=== PATIENT | male | born 1975 | race Caucasian/White ===

== ENCOUNTER 2021-11-05 03:39 | Inpatient (IN) | payer SELFPAY ==
[2021-11-05] VITALS (24 sets, daily range): BP systolic 122–220; BP diastolic 69–130; PULSE 75–119; RESP 14–26; TEMP 36.6–37; O2SAT 94–100; BMI 33.9; BMI 36.4
--- NOTE | 2021-11-05 03:53 | CT_ITS ---
PROCEDURE INFORMATION: Exam: CTA Abdomen and Pelvis With Contrast Exam date and time: 11/05/2021 3:53 AM Age: 46 years old Clinical indication: Shortness of breath and other: Severe epigastric pain and vomiting; Additional info: Epigastric pain worst pain radiating to back TECHNIQUE: Imaging protocol: Computed tomographic angiography of the abdomen and pelvis with contrast material. 3D rendering (Not supervised by radiologist): MIP and/or 3D reconstructed images were created by the technologist. Radiation optimization: All CT scans at this facility use at least one of these dose optimization techniques: automated exposure control; mA and/or kV adjustment per patient size (includes targeted exams where dose is matched to clinical indication); or iterative reconstruction. Contrast material: ISOVUE 370; Contrast volume: 100 ml; Contrast route: INTRAVENOUS (IV); COMPARISON: No relevant prior studies available. FINDINGS: Aorta: No aortic aneurysm. No aortic dissection. Celiac trunk and mesenteric arteries: No occlusion or significant stenosis. Renal arteries: No occlusion or significant stenosis. Right iliac arteries: No occlusion or significant stenosis. Left iliac arteries: No occlusion or significant stenosis. Liver: The liver is diffusely low in density. Gallbladder and bile ducts: Unremarkable. No calcified stones. No ductal dilation. Pancreas: Unremarkable. No mass. No ductal dilation. Spleen: Unremarkable. No splenomegaly. Adrenal glands: Unremarkable. No mass. Kidneys and ureters: Unremarkable. No solid mass. No hydronephrosis. Stomach and bowel: The stomach is distended with fluid and solids. The colon is decompressed. A few diverticuli of the sigmoid colon are noted. Multiple distended fluid-filled loops of small bowel are seen throughout the abdomen extending to the mid to distal ileum. The transition zone is not identified. Appendix: No evidence of appendicitis. Intraperitoneal space: Small amount of free fluid is seen in the dependent pelvis. Lymph nodes: Unremarkable. No enlarged lymph nodes. Urinary bladder: Unremarkable. No mass. Reproductive: Unremarkable as visualized. Bones/joints: No acute fracture. No dislocation. Soft tissues: Unremarkable. IMPRESSION: 1. Mid to distal small bowel obstruction. No evidence of perforation. The transition zone is not identified but is likely in the mid to distal ileum. 2. Aortic atherosclerosis is present without dissection aneurysm or other acute process. 3. Diffuse hepatic steatosis.
--- NOTE | 2021-11-05 03:53 | ECG_ITS ---
APPROVED REPORT Exam: Resting ECG HR:94 bpm ECG Measurements Heart Rate 94 AXES CO 146 P 78 QRSd 80 QRS -42 QT 360 T 59 QTc 450 Conclusion Normal sinus rhythm Left axis deviation Abnormal ECG Electronically signed by : Jon Hunt MD 11/05/2021 21:38:01
--- NOTE | 2021-11-05 03:53 | XR_ITS ---
PROCEDURE INFORMATION: Exam: XR Chest Exam date and time: 11/05/2021 3:53 AM Age: 46 years old Clinical indication: Sternal or substernal pain; Additional info: Epigastric pain, worst pain, trouble breathing TECHNIQUE: Imaging protocol: XR of the chest. Views: 1 view. COMPARISON: CT ANGIO CHEST 11/05/2021 4:19 AM FINDINGS: Lungs: Unremarkable. No consolidation. Pleural spaces: Unremarkable. No pleural effusion. No pneumothorax. Heart/Mediastinum: Unremarkable. No cardiomegaly. Bones/joints: Unremarkable. IMPRESSION: No acute findings.
--- NOTE | 2021-11-05 03:53 | CT_ITS ---
PROCEDURE INFORMATION: Exam: CTA Chest With Contrast Exam date and time: 11/05/2021 3:53 AM Age: 46 years old Clinical indication: Pain; Chest pressure; Additional info: Epigastric pain worst pain radiating to back TECHNIQUE: Imaging protocol: Computed tomographic angiography of the chest with contrast. 3D rendering (Not supervised by radiologist): MIP and/or 3D reconstructed images were created by the technologist. Radiation optimization: All CT scans at this facility use at least one of these dose optimization techniques: automated exposure control; mA and/or kV adjustment per patient size (includes targeted exams where dose is matched to clinical indication); or iterative reconstruction. Contrast material: ISOVUE 370; Contrast volume: 100 ml; Contrast route: INTRAVENOUS (IV); COMPARISON: No relevant prior studies available. FINDINGS: Pulmonary arteries: Normal. No pulmonary emboli. Aorta: Unremarkable. No aortic aneurysm. No aortic dissection. Lungs: Unremarkable. No consolidation. No masses. Pleural spaces: Unremarkable. No pneumothorax. No pleural effusion. Heart: Unremarkable. No cardiomegaly. No pericardial effusion. Lymph nodes: Unremarkable. No enlarged lymph nodes. Bones/joints: Unremarkable. No acute fracture. Soft tissues: Unremarkable. IMPRESSION: No acute findings. No evidence of aortic dissection or other acute aortic syndrome. No evidence of pulmonary embolus.
--- NOTE | 2021-11-05 03:59 | HMH.EDGENADL ---
ED Disposition Clinical Impression: SBO (small bowel obstruction), Sepsis Disposition: Admitted As Inpatient Condition on Discharge: Fair - Critical Care Critical Care Time: No Attestation: On 11/05/21, the high probability of a clinically significant, sudden or life threatening deterioration of the following system(s) required my full and direct attention, intervention and personal management. The time I documented below is in addition to time spent performing reported procedures but includes the following listed in this critical care notation. Medical Decision Making - Tee Inquiry Pt receiving controlled substance: Yes Tee was queried for this patient: No Reason not queried -: Emergent pt cond-no time Risks and benefits of using a controlled substance: were not discussed with pt by me Vital Signs: 11/05/21 03:58 11/05/21 04:33 11/05/21 05:00 Temperature 97.8 F Temperature Source Oral Pulse Rate 87 84 Pulse Rate [Right Brachial] 119 H Respiratory Rate 26 H 20 15 Blood Pressure 174/104 H 143/106 H Blood Pressure [Right Arm] 150/100 H Blood Pressure Mean Blood Pressure Mean [Right Arm] 116 Blood Pressure Source Blood Pressure Source [Right Arm] Manual Cuff/ Auscultation Blood Pressure Position Blood Pressure Position [Right Arm] Sitting 02 Sat by Pulse Oximetry 97 98 99 Oxygen Delivery Method Room Air Room Air Room Air 11/05/21 05:43 11/05/21 05:58 11/05/21 06:00 Temperature Temperature Source Pulse Rate 89 118 H 87 Pulse Rate [Right Brachial] Respiratory Rate 20 19 23 Blood Pressure 133/93 H 122/75 154/102 H Blood Pressure [Right Arm] Blood Pressure Mean 106 118 Blood Pressure Mean [Right Arm] Blood Pressure Source Automatic Cuff Blood Pressure Source [Right Arm] Blood Pressure Position Supine Blood Pressure Position [Right Arm] 02 Sat by Pulse Oximetry 98 98 96 Oxygen Delivery Method 11/05/21 06:31 11/05/21 07:00 Temperature Temperature Source Pulse Rate 86 75 Pulse Rate [Right Brachial] Respiratory Rate 15 14 Blood Pressure 171/105 H 171/103 H Blood Pressure [Right Arm] Blood Pressure Mean 127 117 Blood Pressure Mean [Right Arm] Blood Pressure Source Blood Pressure Source [Right Arm] Blood Pressure Position Blood Pressure Position [Right Arm] 02 Sat by Pulse Oximetry 100 99 Oxygen Delivery Method - Lab Data Lab Results 11/05/21 03:51: WBC 18.2 H, RBC 5.50, Hgb 16.7, Hct 50.0, MCV 90.8, MCH 30.4, MCHC 33.5, RDW 13.4, Plt Count 336, MPV 7.2 L, Neut % (Auto) 75.5, Lymph % (Auto) 18.0, [place] % (Auto) 5.3, Eos % (Auto) 0.4, Baso % (Auto) 0.8, Neut # (Auto) 13.8 H, Lymph # (Auto) 3.3, [place] # (Auto) 1.0, Eos # (Auto) 0.1, Baso # (Auto) 0.2, Total Counted 100, Neutrophils % (Manual) 80 H, Band Neutrophils % 1.0, Lymphocytes % (Manual) 19, Platelet Estimate Normal, RBC Morphology Normal 11/05/21 03:51: Sodium 138, Potassium 4.2, Chloride 98, Carbon Dioxide 26, Anion Gap 18.2 H, BUN 9, Creatinine 0.80, Estimated Creat Clear 181, Estimated GFR 103, Est GFR ( Amer) 125, Glucose 139 H, Calcium 10.1, Total Bilirubin 0.7, AST 103 H, ALT 86 H, Alkaline Phosphatase 70, Troponin I < 0.01, Total Protein 8.6 H, Albumin 4.9, Globulin 3.7 H, Albumin/Globulin Ratio 1.3, Lipase 127 11/05/21 03:51: Lactate 3.8 H 11/05/21 04:05: SARS-CoV-2 (PCR) Not detected, Influenza A Untype (PCR) Not detected, Influenza Type B (PCR) Not detected 11/05/21 05:00: Blood Type A Positive, Antibody Screen Negative 11/05/21 05:35: WBC 19.5 H, RBC 5.25, Hgb 16.1, Hct 48.1, MCV 91.6, MCH 30.6, MCHC 33.3, RDW 13.6, Plt Count 290, MPV 7.2 L, Neut % (Auto) 87.3 H, Lymph % (Auto) 6.3 L, [place] % (Auto) 5.6, Eos % (Auto) 0.2, Baso % (Auto) 0.6, Neut # (Auto) 17.1 H, Lymph # (Auto) 1.2, [place] # (Auto) 1.1 H, Eos # (Auto) 0.1, Baso # (Auto) 0.1 11/05/21 05:35: Sodium 137, Potassium 4.9, Chloride 98, Carbon Dioxide 25, Anion Gap 18.9 H, BUN 9, Creatinine 0.80, Estimated
[2021-11-05 04:10] LABS: Basophils # 0.2 K/mm3 (0-0.2); Basophils % 0.8 % (0.1-2.0); Eosinophils # 0.1 K/mm3 (0.0-0.4); Eosinophils % 0.4 % (0.1-12.0); Hemoglobin 16.7 g/dL (14.1-18.0); Lymphocytes # 3.3 K/mm3 (0.7-4.5); Mean Corpuscular HGB Conc 33.5 g/dL (31.8-35.4); Mean Corpuscular Hemoglobin 30.4 pg (27.0-31.2); Mean Corpuscular Volume 90.8 fl (80-94); Mean Platelet Volume 7.2 fl (7.4-10.4); Monocytes % 5.3 % (1.7-9.3); Neutrophils # 13.8 K/mm3 (1.8-7.8); Neutrophils % 75.5 % (37.0-80.0); Platelet Count 336 K/mm3 (142-424); Red Cell Distribution Width 13.4 % (11.5-17.5); White Blood Count 18.2 K/mm3 (4.8-10.8)
[2021-11-05 04:12] LABS: MANUAL DIFFERENTIAL MANUAL DIFFERENTIAL (MANUAL DIFF)
--- NOTE | 2021-11-05 04:15 | PC.NURSE ---
to ct via stretcher.
[2021-11-05 04:22] LABS: Chloride 98 mmol/L (98-107); Sodium 138 mmol/L (136-145)
[2021-11-05 04:23] LABS: Potassium 4.2 mmoL/L (3.5-5.1)
[2021-11-05 04:25] LABS: Alanine Aminotransferase 86 U/L (12-78); Albumin Level 4.9 g/dl (3.5-5.0); Albumin/Globulin Ratio 1.3 (1.1-1.8); Alkaline Phosphatase 70 U/L (38-126); Anion Gap 18.2 mEq/L (5-15); Aspartate Amino Transferase 103 U/L (17-59); Bilirubin,Total 0.7 mg/dl (0.2-1.3); Blood Urea Nitrogen 9 mg/dl (9-20); Carbon Dioxide 26 mmol/L (22.0-30.0); Creatinine Clearance Estimated 181 mL/min (50-200); Estimated Glomerular Filt Rate 103 ml/min (>60); GFR (African American) 125 ML/MIN (>60); Globulin 3.7 g/dL (1.3-3.2); Lipase 127 U/L (23-300); Total Protein,Serum 8.6 g/dl (6.3-8.2)
[2021-11-05 04:26] LABS: Calcium 10.1 mg/dl (8.4-10.2); Glucose 139 mg/dl (74-100)
[2021-11-05 04:28] LABS: Lactic Acid 3.8 mmol/L (0.7-2.1)
[2021-11-05 04:30] LABS: Lymphocytes % 19 % (10-50); Neutrophils % 80 % (42-76); Platelet Estimate Normal; RBC Morphology Normal; Total Cells Counted 100
[2021-11-05 04:42] LABS: Troponin I < 0.01 ng/ml (0.00-0.034)
--- NOTE | 2021-11-05 04:47 | PC.NURSE ---
return from ct at this time. back to panel monitor
[2021-11-05 05:36] LABS: Coronavirus 19, PCR Not Detected (NotDetected); Influenza A, PCR Not Detected (NotDetected); Influenza B, PCR Not Detected (NotDetected)
--- NOTE | 2021-11-05 05:39 | PC.NURSE ---
speaking with Gladys at this time. General Surgery consult added.
[2021-11-05 05:50] LABS: Basophils # 0.1 K/mm3 (0-0.2); Basophils % 0.6 % (0.1-2.0); Eosinophils # 0.1 K/mm3 (0.0-0.4); Eosinophils % 0.2 % (0.1-12.0); Hematocrit 48.1 % (42.0-52.0); Hemoglobin 16.1 g/dL (14.1-18.0); Lymphocytes # 1.2 K/mm3 (0.7-4.5); Lymphocytes % 6.3 % (10-50); Mean Corpuscular HGB Conc 33.3 g/dL (31.8-35.4); Mean Corpuscular Hemoglobin 30.6 pg (27.0-31.2); Mean Corpuscular Volume 91.6 fl (80-94); Mean Platelet Volume 7.2 fl (7.4-10.4); Monocytes # 1.1 K/mm3 (0.1-1.0); Monocytes % 5.6 % (1.7-9.3); Neutrophils # 17.1 K/mm3 (1.8-7.8); Neutrophils % 87.3 % (37.0-80.0); Platelet Count 290 K/mm3 (142-424); Red Blood Count 5.25 M/mm3 (4.60-6.20); Red Cell Distribution Width 13.6 % (11.5-17.5); White Blood Count 19.5 K/mm3 (4.8-10.8)
--- NOTE | 2021-11-05 05:52 | PC.NURSE ---
blood collected and sent to lab
[2021-11-05 06:06] LABS: Chloride 98 mmol/L (98-107); Potassium 4.9 mmoL/L (3.5-5.1); Sodium 137 mmol/L (136-145)
[2021-11-05 06:09] LABS: Alanine Aminotransferase 80 U/L (12-78); Albumin Level 4.7 g/dl (3.5-5.0); Albumin/Globulin Ratio 1.5 (1.1-1.8); Alkaline Phosphatase 66 U/L (38-126); Anion Gap 18.9 mEq/L (5-15); Aspartate Amino Transferase 99 U/L (17-59); Bilirubin,Total 0.6 mg/dl (0.2-1.3); Blood Urea Nitrogen 9 mg/dl (9-20); Carbon Dioxide 25 mmol/L (22.0-30.0); Creatinine Clearance Estimated 181 mL/min (50-200); Estimated Glomerular Filt Rate 103 ml/min (>60); GFR (African American) 125 ML/MIN (>60); Globulin 3.2 g/dL (1.3-3.2); Total Protein,Serum 7.9 g/dl (6.3-8.2)
[2021-11-05 06:10] LABS: Calcium 9.4 mg/dl (8.4-10.2); Glucose 124 mg/dl (74-100)
[2021-11-05 06:17] LABS: Lactic Acid 3.4 mmol/L (0.7-2.1)
[2021-11-05 06:37] LABS: Troponin I < 0.01 ng/ml (0.00-0.034)
[2021-11-05 08:09] LABS: Reflex Lactic Add Lactic Reflex
[2021-11-05 08:52] LABS: Lactic Acid Follow Up (RFLX 1) 3.4 mmol/L (0.7-2.1)
--- NOTE | 2021-11-05 08:53 | HMH.GSCON ---
*Admission Date: 11/05/21 *Reason for consult:: Small bowel obstruction *History of present illness: Patient is a 46-year-old male from [facility]. He presented to the emergency department early this morning with symptoms of significant epigastric pain described as sharp. Onset was yesterday afternoon approximately 4 PM. He states that he felt the need to vomit and thought that this may be indigestion. He did have a normal bowel movement yesterday. He was seen and evaluated in the emergency department and found to have a leukocytosis. He did have an elevated lactate at 3.8. He underwent imaging which revealed dilated small bowel without any clear transition point. Plan was for admission and inpatient management with surgical consultation. Patient states that he drinks about 6 or 8 beers daily during the week and about 10 or 12 on the weekends daily. He does state that he feels better now than upon admission. Review of Systems - Review of Systems Review of systems:: pertinent systems reviewed and negative unless documented below [facility] History I have reviewed the patient's past medical history: Yes *Have you ever received a pneumonia vaccine?: No *Have you received a flu vaccine this season?: No - *Social History Smoking Status: Never smoker Alcohol Intake: current Alcohol Intake Frequency:: 3 or more drinks per day *Occupational Status:: other *Travel in the last 8 weeks: None Family Hx:: Non-contributory Meds Home Medications Medication Instructions Recorded Confirmed Type Cyclobenzaprine HCl 5 mg PO TID PRN 11/05/21 11/05/21 History [Cyclobenzaprine 5mg Tab*] allopurinoL [Allopurinol 300mg 300 mg PO DAILY 11/05/21 11/05/21 History tablet] lisinopriL [Lisinopril] 10 mg PO DAILY 11/05/21 11/05/21 History lisinopriL [Lisinopril] 20 mg PO DAILY 11/05/21 11/05/21 History Allergies Allergy/AdvReac Type Severity Reaction Status Date / Time No Known Allergies Allergy Verified 11/05/21 04:05 Exam Vital signs and Labs for Last 24 Hours: Temp Pulse Resp BP Pulse Ox 97.8 F 80 14 155/99 H 98 11/05/21 03:58 11/05/21 08:00 11/05/21 08:00 11/05/21 08:00 11/05/21 08:00 Laboratory Results - last 24 hr 11/05/21 03:51: WBC 18.2 H, RBC 5.50, Hgb 16.7, Hct 50.0, MCV 90.8, MCH 30.4, MCHC 33.5, RDW 13.4, Plt Count 336, MPV 7.2 L, Neut % (Auto) 75.5, Lymph % (Auto) 18.0, [place] % (Auto) 5.3, Eos % (Auto) 0.4, Baso % (Auto) 0.8, Neut # (Auto) 13.8 H, Lymph # (Auto) 3.3, [place] # (Auto) 1.0, Eos # (Auto) 0.1, Baso # (Auto) 0.2, Total Counted 100, Neutrophils % (Manual) 80 H, Band Neutrophils % 1.0, Lymphocytes % (Manual) 19, Platelet Estimate Normal, RBC Morphology Normal 11/05/21 03:51: Sodium 138, Potassium 4.2, Chloride 98, Carbon Dioxide 26, Anion Gap 18.2 H, BUN 9, Creatinine 0.80, Estimated Creat Clear 181, Estimated GFR 103, Est GFR ( Amer) 125, Glucose 139 H, Calcium 10.1, Total Bilirubin 0.7, AST 103 H, ALT 86 H, Alkaline Phosphatase 70, Troponin I < 0.01, Total Protein 8.6 H, Albumin 4.9, Globulin 3.7 H, Albumin/Globulin Ratio 1.3, Lipase 127 11/05/21 03:51: Lactate 3.8 H 11/05/21 04:05: SARS-CoV-2 (PCR) Not detected, Influenza A Untype (PCR) Not detected, Influenza Type B (PCR) Not detected 11/05/21 05:00: Blood Type A Positive, Antibody Screen Negative 11/05/21 05:35: WBC 19.5 H, RBC 5.25, Hgb 16.1, Hct 48.1, MCV 91.6, MCH 30.6, MCHC 33.3, RDW 13.6, Plt Count 290, MPV 7.2 L, Neut % (Auto) 87.3 H, Lymph % (Auto) 6.3 L, [place] % (Auto) 5.6, Eos % (Auto) 0.2, Baso % (Auto) 0.6, Neut # (Auto) 17.1 H, Lymph # (Auto) 1.2, [place] # (Auto) 1.1 H, Eos # (Auto) 0.1, Baso # (Auto) 0.1 11/05/21 05:35: Sodium 137, Potassium 4.9, Chloride 98, Carbon Dioxide 25, Anion Gap 18.9 H, BUN 9, Creatinine 0.80, Estimated Creat Clear 181, Estimated GFR 103, Est GFR ( Amer) 125, Glucose 124 H, Calcium 9.4, Total Bilirubin 0.6, AST 99 H, ALT 80 H, Alkaline Phosphatase 66, Troponin I < 0.01, Total Protein 7.9, Albumin 4.7,
--- NOTE | 2021-11-05 08:58 | PC.NURSE ---
pt resting quietly offers no c/o at present
--- NOTE | 2021-11-05 10:04 | HMH.HP ---
*Admission Date: 11/05/21 *Chief complaint: Abdominal pain *History of present illness: 46 yo male w/ hx HTN, alcohol use disorder, left renal infarction presents for evaluation of abdominal pain. Patient reports since 1600 on 11/04/21 he is experiencing primarily epigastric pain that radiates to his mid-back, and is increasing in severity to 10/10. Pt also reports abdominal distention. States he drinks 10 beers a day and drank about that much today. Since onset of pain he has also had several episodes of nbnb emesis and feels nauseous. States he felt in normal state of health immediately prior to onset of pain. States he has not passed flatus or had BM since onset. Denies recent illness, dysuria, hematuria, numbness, tingling, weakness, cough, rhinorrhea, fever, headache, shortness of breath, chest pain. Emergency department heart rate 119, respiratory rate 26, white blood cell count 19.5, and lactate 3.8 11/05/20 Abd/Pelvis CT: FINDINGS: Aorta: No aortic aneurysm. No aortic dissection. Celiac trunk and mesenteric arteries: No occlusion or significant stenosis. Renal arteries: No occlusion or significant stenosis. Right iliac arteries: No occlusion or significant stenosis. Left iliac arteries: No occlusion or significant stenosis. Liver: The liver is diffusely low in density. Gallbladder and bile ducts: Unremarkable. No calcified stones. No ductal dilation. Pancreas: Unremarkable. No mass. No ductal dilation. Spleen: Unremarkable. No splenomegaly. Adrenal glands: Unremarkable. No mass. Kidneys and ureters: Unremarkable. No solid mass. No hydronephrosis. Stomach and bowel: The stomach is distended with fluid and solids. The colon is decompressed. A few diverticuli of the sigmoid colon are noted. Multiple distended fluid-filled loops of small bowel are seen throughout the abdomen extending to the mid to distal ileum. The transition zone is not identified. Appendix: No evidence of appendicitis. Intraperitoneal space: Small amount of free fluid is seen in the dependent pelvis. Lymph nodes: Unremarkable. No enlarged lymph nodes. Urinary bladder: Unremarkable. No mass. Reproductive: Unremarkable as visualized. Bones/joints: No acute fracture. No dislocation. Soft tissues: Unremarkable. IMPRESSION: 1. Mid to distal small bowel obstruction. No evidence of perforation. The transition zone is not identified but is likely in the mid to distal ileum. 2. Aortic atherosclerosis is present without dissection aneurysm or other acute process. 3. Diffuse hepatic steatosis. 11/05/[address]: FINDINGS: Pulmonary arteries: Normal. No pulmonary emboli. Aorta: Unremarkable. No aortic aneurysm. No aortic dissection. Lungs: Unremarkable. No consolidation. No masses. Pleural spaces: Unremarkable. No pneumothorax. No pleural effusion. Heart: Unremarkable. No cardiomegaly. No pericardial effusion. Lymph nodes: Unremarkable. No enlarged lymph nodes. Bones/joints: Unremarkable. No acute fracture. Soft tissues: Unremarkable. IMPRESSION: No acute findings. No evidence of aortic dissection or other acute aortic syndrome. No evidence of pulmonary embolus. Electronically signed by Rodriguez Adames MD 46-year-old male patient sitting up in bed in the department he denies any abdominal pain or respiratory distress during the night. This morning abdomen is soft, nontender to palpation and patient denies any pain at present. General surgery is following [facility] History I have reviewed the patient's past medical history: Yes *Have you ever received a pneumonia vaccine?: No *Have you received a flu vaccine this season?: No - *Social History Smoking Status: Never smoker Alcohol Intake: current Alcohol Intake Frequency:: 3 or more drinks per day *Occupational Status:: other *Travel in the last 8 weeks: None Family Hx:: Non-contributory Review of Systems - Review of Systems Review of systems:: renee
[2021-11-05 10:37] LABS: Reflex Lactic (2 hrs) Add Lactic Reflex
[2021-11-05 11:25] LABS: Lactic Acid Follow up (RFLX 2) 2.7 mmol/L (0.7-2.1)
[2021-11-05 11:37] LABS: Troponin I < 0.01 ng/ml (0.00-0.034)
[2021-11-05 13:09] LABS: Microscopic, Urine URINE MICROSCOPIC (MICROSCOPIC)
[2021-11-05 13:15] LABS: Appearance,Urine CLEAR (Clear); Bilirubin,Urine Negative (Negative); Blood, Urine Negative (Negative); Color,Urine YELLOW (Yellow); Glucose,Urine (UA) Negative (Negative); Ketones,Urine Negative (Negative); Leukocyte Esterase,Urine Negative (Negative); Nitrate,Urine Negative (Negative); Protein,Urine Negative (Negative); Specific Gravity, Urine 1.015 (1.005-1.030); Urobilinogen,Urine 0.2 EU/dl (0.2)
[2021-11-05 13:32] LABS: Bacteria,Urine Trace /lpf
--- NOTE | 2021-11-05 14:43 | PC.NURSE ---
Pt is sleeping in room comfortably
--- NOTE | 2021-11-05 15:31 | P.CONPHA_ITS ---
[facility] Pharmacy VTE Monitoring - Patient Demographics Admission date: 11/05/21 Report Date: 11/05/21 Time: 15:31 Allergies/Adverse Reactions: Patient Allergies No Known Allergies Allergy (Verified 11/05/21 04:05) Height: 1.83 m Weight: 113.398 kg Patient Problems: Current Active Problems SBO (small bowel obstruction) (Acute) Sepsis (Acute) - VTE Risk Labs: VTE Related Lab Results Hgb 16.1 g/dL (14.1-18.0) 11/05/21 05:35 Hct 48.1 % (42.0-52.0) 11/05/21 05:35 Plt Count 290 K/mm3 (142-424) 11/05/21 05:35 BUN 9 mg/dl (9-20) 11/05/21 05:35 Creatinine 0.80 mg/dl (0.66-1.25) 11/05/21 05:35 Estimated Creat Clear 181 mL/min (50-200) 11/05/21 05:35 Clinical Trial Participant: No - Prophylaxis VTE Prophylaxis Ordered?: Yes Types of VTE Prophylaxis: TEDS Knee High
--- NOTE | 2021-11-05 16:42 | PC.NURSE ---
Called report to randy
--- NOTE | 2021-11-05 17:00 | PC.NURSE ---
RN aware of elevated bp
[2021-11-06 04:00] VITALS: BP 125/74; PULSE 84; RESP 16; TEMP 36.7; O2SAT 98
[2021-11-06 05:18] VITALS: BMI 36.8
--- NOTE | 2021-11-06 06:24 | HMH.GSPN ---
Subjective Patient reports: feels better Narrative: Patient feels better. He has had a couple bowel movements. States that the minor soreness is more in the lower abdomen now but much improved. Progress Note: A&P (1) SBO (small bowel obstruction) Status: Acute (2) ETOH abuse Status: Acute (3) Sepsis Status: Acute Assessment and Plan for All Diagnoses:: Acute abdominal series today. Likely give liquid diet if acute abdominal series shows resolving bowel obstruction. Exam Vital signs and Labs for Last 24 Hours: Temp Pulse Resp BP Pulse Ox 98.1 F 84 16 125/74 98 11/06/21 04:00 11/06/21 04:00 11/06/21 04:00 11/06/21 04:00 11/06/21 04:00 Laboratory Results - last 24 hr 11/05/21 05:00: Blood Type A Positive, Antibody Screen Negative 11/05/21 05:35: Troponin I < 0.01 11/05/21 08:33: Lactate 3.4 H 11/05/21 11:06: Troponin I < 0.01 11/05/21 11:06: Lactate 2.7 H 11/05/21 12:55: Urine Color Yellow, Urine Appearance Clear, Urine pH 6.0, Ur Specific [place] 1.015, Urine Protein Negative, Urine Glucose (UA) Negative, Urine Ketones Negative, Urine Blood Negative, Urine Nitrate Negative, Urine Bilirubin Negative, Urine Urobilinogen 0.2, Ur Leukocyte Esterase Negative, Urine RBC None, Urine WBC None, Ur Squamous Epith Cells None, Urine Bacteria Trace I & O for Last 24 hours: Intake & Output 11/03/21 11/04/21 11/05/21 11/06/21 11:59 11:59 11:59 11:59 Intake Total 0 / 0 Balance 0 / 0 Weight 250 lb 249 lb 1.6 oz - *Routine Abdominal Exam Present: soft. Absent: tenderness
[2021-11-06 07:00] LABS: Basophils # 0.1 K/mm3 (0-0.2); Eosinophils # 0.2 K/mm3 (0.0-0.4); Hematocrit 42.9 % (42.0-52.0); Hemoglobin 14.2 g/dL (14.1-18.0); Lymphocytes # 1.7 K/mm3 (0.7-4.5); Lymphocytes % 23.2 % (10-50); Mean Corpuscular HGB Conc 33.1 g/dL (31.8-35.4); Mean Corpuscular Hemoglobin 30.7 pg (27.0-31.2); Mean Corpuscular Volume 92.8 fl (80-94); Mean Platelet Volume 8.2 fl (7.4-10.4); Monocytes # 0.5 K/mm3 (0.1-1.0); Monocytes % 6.8 % (1.7-9.3); Neutrophils # 4.9 K/mm3 (1.8-7.8); Platelet Count 205 K/mm3 (142-424); Red Blood Count 4.63 M/mm3 (4.60-6.20); Red Cell Distribution Width 13.8 % (11.5-17.5); White Blood Count 7.4 K/mm3 (4.8-10.8)
[2021-11-06 07:12] LABS: Lactic Acid 1.7 mmol/L (0.7-2.1)
[2021-11-06 07:13] LABS: Blood Urea Nitrogen 8 mg/dl (9-20); Calcium 8.4 mg/dl (8.4-10.2); Carbon Dioxide 28 mmol/L (22.0-30.0); Chloride 98 mmol/L (98-107); Creatinine Clearance Estimated 180 mL/min (50-200); Estimated Glomerular Filt Rate 103 ml/min (>60); GFR (African American) 125 ML/MIN (>60); Glucose 110 mg/dl (74-100); Sodium 133 mmol/L (136-145)
[2021-11-06 08:00] VITALS: BP 139/81; PULSE 92; RESP 16; TEMP 36.9; O2SAT 98
--- NOTE | 2021-11-06 09:34 | HMH.ACPN2 ---
Internal Medicine - PN: Subj *Date: 11/06/21 *Time: 08:40 Interval history: pt report 2 bm today and abd tender Exam Vital signs and Labs for Last 24 Hours: Temp Pulse Resp BP Pulse Ox 98.4 F 92 H 16 139/81 98 11/06/21 08:00 11/06/21 08:00 11/06/21 08:00 11/06/21 08:00 11/06/21 08:00 Laboratory Results - last 24 hr 11/05/21 11:06: Troponin I < 0.01 11/05/21 11:06: Lactate 2.7 H 11/05/21 12:55: Urine Color Yellow, Urine Appearance Clear, Urine pH 6.0, Ur Specific [place] 1.015, Urine Protein Negative, Urine Glucose (UA) Negative, Urine Ketones Negative, Urine Blood Negative, Urine Nitrate Negative, Urine Bilirubin Negative, Urine Urobilinogen 0.2, Ur Leukocyte Esterase Negative, Urine RBC None, Urine WBC None, Ur Squamous Epith Cells None, Urine Bacteria Trace 11/06/21 06:35: WBC 7.4 D, RBC 4.63, Hgb 14.2, Hct 42.9, MCV 92.8, MCH 30.7, MCHC 33.1, RDW 13.8, Plt Count 205 D, MPV 8.2, Neut % (Auto) 66.0, Lymph % (Auto) 23.2, [place] % (Auto) 6.8, Eos % (Auto) 3.0, Baso % (Auto) 1.0, Neut # (Auto) 4.9, Lymph # (Auto) 1.7, [place] # (Auto) 0.5, Eos # (Auto) 0.2, Baso # (Auto) 0.1 11/06/21 06:35: Sodium 133 L, Potassium 4.0, Chloride 98, Carbon Dioxide 28, Anion Gap 11.0, BUN 8 L, Creatinine 0.80, Estimated Creat Clear 180, Estimated GFR 103, Est GFR ( Amer) 125, Glucose 110 H, Calcium 8.4 11/06/21 06:35: Lactate 1.7 I & O for Last 24 hours: Intake & Output 11/03/21 11/04/21 11/05/21 11/06/21 11:59 11:59 11:59 11:59 Intake Total 0 / 0 Balance 0 / 0 Weight 250 lb 249 lb 1.6 oz - Constitutional no acute distress - *Routine HEENT Exam Head: Present: normocephalic Eye: Present: PERRL ENT: Present: mucous membranes moist - *Routine Neck Exam Present: supple. Absent: lymphadenopathy - *Routine Respiratory Exam Present: CTA bilaterally - *Routine Cardiovascular Exam Present: RRR - *Routine Abdominal Exam Present: soft, normoactive bowel sounds, tenderness - *Routine Extremities Exam Absent: cyanosis, clubbing, edema - *Routine Skin Exam Present: warm. Absent: rash - *Routine Neurological Exam Present: alert, oriented X3 Assessment and Plan (1) SBO (small bowel obstruction) Status: Acute Category: Medical Code(s): K56.609 - Unspecified intestinal obstruction, unspecified as to partial versus complete obstruction (2) ETOH abuse Status: Acute Category: Social Hx Code(s): F10.10 - Alcohol abuse, uncomplicated (3) Sepsis Status: Acute Category: Medical Code(s): A41.9 - Sepsis, unspecified organism - Assessment and plan all Dx Assessment and Plan for all problems:: rounded with dr donohue all orders per dr donohue aaa- poss advance diet
--- NOTE | 2021-11-06 09:49 | XR_ITS ---
FINAL REPORT CLINICAL HISTORY: follow up small bowel obstruction; pt sates he has had a bowel movement today FINDINGS: Flat and upright views of the abdomen demonstrate abnormally dilated small bowel loops up to 4.2 cm involving the proximal small bowel. There is no free air. There are no abnormal calcifications. IMPRESSION: Abnormally dilated small bowel loops could represent segmental ileus or early obstruction. Reviewed, Interpreted and Dictated by Daniel Henson MD Transcribed by Gonzales Luna Authenticated by Daniel Henson MD on 11/06/2021 12:13:[address] [facility]
[2021-11-06 15:47] VITALS: BP 155/103; PULSE 104; RESP 18; TEMP 36.7; O2SAT 97
--- NOTE | 2021-11-06 15:48 | PC.NURSE ---
RN aware of elevated BP
[2021-11-06 19:43] VITALS: BP 122/71; PULSE 87; RESP 18; TEMP 36.7; O2SAT 96
[2021-11-06 20:00] VITALS: O2SAT 96
[2021-11-07 03:49] VITALS: BP 128/88; PULSE 83; RESP 18; TEMP 36.6; O2SAT 96
[2021-11-07 05:14] VITALS: BMI 36.9
--- NOTE | 2021-11-07 06:00 | FL_ITS ---
FINAL REPORT CLINICAL HISTORY: SMALL BOWEL OBSTRUCTION FINDINGS: SMALL BOWEL FOLLOW THROUGH HISTORY: Small bowel obstruction PROCEDURE: The patient ingested barium. Spot and overhead films were obtained. FINDINGS:Preliminary business division chair film of the abdomen demonstrates dilated small bowel loops, predominantly in the left upper quadrant. Transit time to the colon is approximately 90 minutes, mitigating against obstruction. The mucosal fold pattern is normal. Spot images of the terminal ileum are unremarkable. FLUOROSCOPY TIME:30 seconds IMPRESSION: Small bowel follow-through demonstrating dilated small bowel loops but no evidence of obstruction as contrast reaches the colon in 90 minutes. Reviewed, Interpreted and Dictated by Savita Chávez MD Transcribed by MONCHO Obregon Authenticated by Savita Chávez MD on 11/09/2021 09:31:28 AM [facility]
--- NOTE | 2021-11-07 06:28 | HMH.GSPN ---
Subjective Narrative: Patient sleeping Progress Note: A&P (1) SBO (small bowel obstruction) Status: Acute Assessment and plan: Will check acute abdominal series this morning. If this shows improvement likely will go ahead and advance diet. However, currently n.p.o. for potential small bowel follow-through. If acute abdominal series shows persistent dilated loops of small bowel likely will consider small bowel follow-through. (2) ETOH abuse Status: Acute (3) Sepsis Status: Acute Exam Vital signs and Labs for Last 24 Hours: Temp Pulse Resp BP Pulse Ox 97.9 F 83 18 128/88 96 11/07/21 03:49 11/07/21 03:49 11/07/21 03:49 11/07/21 03:49 11/07/21 03:49 Laboratory Results - last 24 hr 11/06/21 06:35: WBC 7.4 D, RBC 4.63, Hgb 14.2, Hct 42.9, MCV 92.8, MCH 30.7, MCHC 33.1, RDW 13.8, Plt Count 205 D, MPV 8.2, Neut % (Auto) 66.0, Lymph % (Auto) 23.2, [place] % (Auto) 6.8, Eos % (Auto) 3.0, Baso % (Auto) 1.0, Neut # (Auto) 4.9, Lymph # (Auto) 1.7, [place] # (Auto) 0.5, Eos # (Auto) 0.2, Baso # (Auto) 0.1 11/06/21 06:35: Sodium 133 L, Potassium 4.0, Chloride 98, Carbon Dioxide 28, Anion Gap 11.0, BUN 8 L, Creatinine 0.80, Estimated Creat Clear 180, Estimated GFR 103, Est GFR ( Amer) 125, Glucose 110 H, Calcium 8.4 11/06/21 06:35: Lactate 1.7 I & O for Last 24 hours: Intake & Output 11/04/21 11/05/21 11/06/21 11/07/21 11:59 11:59 11:59 11:59 Intake Total 0 / 0 1680 / 1680 Balance 0 / 0 1680 / 1680 Weight 250 lb 249 lb 1.6 oz 249 lb 7 oz Microbiology Reports for the Last 24 Hours: Microbiology 11/05/21 05:35 Blood Blood Culture - Preliminary NO GROWTH AFTER 48 HOURS 11/05/21 05:35 Blood Blood Culture - Preliminary NO GROWTH AFTER 48 HOURS Narrative: No acute distress
[2021-11-07 06:40] LABS: Anion Gap 6.9 mEq/L (5-15); Blood Urea Nitrogen 4 mg/dl (9-20); Calcium 8.2 mg/dl (8.4-10.2); Carbon Dioxide 29 mmol/L (22.0-30.0); Chloride 102 mmol/L (98-107); Creatinine Clearance Estimated 181 mL/min (50-200); Estimated Glomerular Filt Rate 103 ml/min (>60); GFR (African American) 125 ML/MIN (>60); Glucose 114 mg/dl (74-100); Potassium 3.9 mmoL/L (3.5-5.1); Sodium 134 mmol/L (136-145)
[2021-11-07 07:03] LABS: Basophils % 0.4 % (0.1-2.0); Eosinophils # 0.2 K/mm3 (0.0-0.4); Eosinophils % 2.6 % (0.1-12.0); Hematocrit 39.8 % (42.0-52.0); Hemoglobin 13.3 g/dL (14.1-18.0); Lymphocytes # 1.2 K/mm3 (0.7-4.5); Lymphocytes % 18.7 % (10-50); Mean Corpuscular HGB Conc 33.5 g/dL (31.8-35.4); Mean Corpuscular Hemoglobin 30.9 pg (27.0-31.2); Mean Corpuscular Volume 92.3 fl (80-94); Mean Platelet Volume 7.3 fl (7.4-10.4); Monocytes # 0.4 K/mm3 (0.1-1.0); Monocytes % 5.7 % (1.7-9.3); Neutrophils # 4.7 K/mm3 (1.8-7.8); Neutrophils % 72.6 % (37.0-80.0); Platelet Count 244 K/mm3 (142-424); Red Blood Count 4.31 M/mm3 (4.60-6.20); Red Cell Distribution Width 13.7 % (11.5-17.5); White Blood Count 6.5 K/mm3 (4.8-10.8)
[2021-11-07 07:57] VITALS: BP 154/112; PULSE 92; RESP 18; TEMP 36.8; O2SAT 96
--- NOTE | 2021-11-07 12:44 | HMH.GSPN ---
Subjective Narrative: Patient states that he did have acute pain after carbonated beverages yesterday. He has however been having liquid bowel movements. He has completed his small bowel follow-through but this is pending. Progress Note: A&P (1) SBO (small bowel obstruction) Status: Acute (2) ETOH abuse Status: Acute (3) Sepsis Status: Acute Assessment and Plan for All Diagnoses:: Awaiting results of small bowel follow-through. Hopefully be able to advance diet. Likely more of an ileus as opposed to mechanical obstruction. Exam Vital signs and Labs for Last 24 Hours: Temp Pulse Resp BP Pulse Ox 98.2 F 92 H 18 154/112 H 96 11/07/21 07:57 11/07/21 07:57 11/07/21 07:57 11/07/21 07:57 11/07/21 07:57 Laboratory Results - last 24 hr 11/07/21 05:33: Sodium 134 L, Potassium 3.9, Chloride 102, Carbon Dioxide 29, Anion Gap 6.9, BUN 4 L D, Creatinine 0.80, Estimated Creat Clear 181, Estimated GFR 103, Est GFR ( Amer) 125, Glucose 114 H, Calcium 8.2 L 11/07/21 06:48: WBC 6.5, RBC 4.31 L, Hgb 13.3 L, Hct 39.8 L, MCV 92.3, MCH 30.9, MCHC 33.5, RDW 13.7, Plt Count 244, MPV 7.3 L, Neut % (Auto) 72.6, Lymph % (Auto) 18.7, [place] % (Auto) 5.7, Eos % (Auto) 2.6, Baso % (Auto) 0.4, Neut # (Auto) 4.7, Lymph # (Auto) 1.2, [place] # (Auto) 0.4, Eos # (Auto) 0.2, Baso # (Auto) 0.0 I & O for Last 24 hours: Intake & Output 11/05/21 11/06/21 11/07/21 11/08/21 11:59 11:59 11:59 11:59 Intake Total 0 / 0 1680 / 1680 Balance 0 / 0 1680 / 1680 Weight 250 lb 249 lb 1.6 oz 249 lb 7 oz Microbiology Reports for the Last 24 Hours: Microbiology 11/05/21 05:35 Blood Blood Culture - Preliminary NO GROWTH AFTER 48 HOURS 11/05/21 05:35 Blood Blood Culture - Preliminary NO GROWTH AFTER 48 HOURS - *Routine Abdominal Exam Present: distended
[2021-11-07 15:04] VITALS: BP 153/96; PULSE 93; RESP 18; TEMP 37.1; O2SAT 97
--- NOTE | 2021-11-07 16:26 | HMH.ACPN2 ---
Internal Medicine - PN: Subj *Date: 11/07/21 *Time: 10:00 Exam Vital signs and Labs for Last 24 Hours: Temp Pulse Resp BP Pulse Ox 98.7 F 93 H 18 153/96 H 97 11/07/21 15:04 11/07/21 15:04 11/07/21 15:04 11/07/21 15:04 11/07/21 15:04 Laboratory Results - last 24 hr 11/07/21 05:33: Sodium 134 L, Potassium 3.9, Chloride 102, Carbon Dioxide 29, Anion Gap 6.9, BUN 4 L D, Creatinine 0.80, Estimated Creat Clear 181, Estimated GFR 103, Est GFR ( Amer) 125, Glucose 114 H, Calcium 8.2 L 11/07/21 06:48: WBC 6.5, RBC 4.31 L, Hgb 13.3 L, Hct 39.8 L, MCV 92.3, MCH 30.9, MCHC 33.5, RDW 13.7, Plt Count 244, MPV 7.3 L, Neut % (Auto) 72.6, Lymph % (Auto) 18.7, [place] % (Auto) 5.7, Eos % (Auto) 2.6, Baso % (Auto) 0.4, Neut # (Auto) 4.7, Lymph # (Auto) 1.2, [place] # (Auto) 0.4, Eos # (Auto) 0.2, Baso # (Auto) 0.0 I & O for Last 24 hours: Intake & Output 11/05/21 11/06/21 11/07/21 11/08/21 11:59 11:59 11:59 11:59 Intake Total 0 / 0 1680 / 1680 240 / 240 Balance 0 / 0 1680 / 1680 240 / 240 Weight 250 lb 249 lb 1.6 oz 249 lb 7 oz Microbiology Reports for the Last 24 Hours: Microbiology 11/05/21 05:35 Blood Blood Culture - Preliminary NO GROWTH AFTER 48 HOURS 11/05/21 05:35 Blood Blood Culture - Preliminary NO GROWTH AFTER 48 HOURS - Constitutional no acute distress - *Routine HEENT Exam Head: Present: normocephalic Eye: Present: PERRL ENT: Present: mucous membranes moist - *Routine Neck Exam Present: supple. Absent: lymphadenopathy - *Routine Respiratory Exam Present: CTA bilaterally - *Routine Cardiovascular Exam Present: RRR - *Routine Abdominal Exam Present: soft, normoactive bowel sounds, tenderness - *Routine Extremities Exam Absent: cyanosis, clubbing, edema - *Routine Skin Exam Present: warm. Absent: rash - *Routine Neurological Exam Present: alert, oriented X3 Assessment and Plan (1) SBO (small bowel obstruction) Status: Acute Category: Medical Code(s): K56.609 - Unspecified intestinal obstruction, unspecified as to partial versus complete obstruction (2) ETOH abuse Status: Acute Category: Social Hx Code(s): F10.10 - Alcohol abuse, uncomplicated (3) Sepsis Status: Acute Category: Medical Code(s): A41.9 - Sepsis, unspecified organism - Assessment and plan all Dx Assessment and Plan for all problems:: rounded with dr magallon all orders per dr magallon small bowel follow though surgery consult
--- NOTE | 2021-11-07 18:52 | PC.NURSE ---
Pt has been pleasant this shift. VSS, BP was elevated at the beginning of this shift. Scheduled BP meds administered per JAN. Pt has tolerated full liquid diet this shift. Abdomen remains distended and tender to touch. No other acute change or complaints.
[2021-11-07 20:00] VITALS: BP 122/112; PULSE 86; RESP 15; TEMP 37.1; O2SAT 96
[2021-11-07 22:01] VITALS: BP 181/111
[2021-11-08] VITALS: BP 159/97; PULSE 82; RESP 16; TEMP 36.7; O2SAT 97
[2021-11-08 04:00] VITALS: BP 145/85; PULSE 81; RESP 15; TEMP 36.7; O2SAT 97
[2021-11-08 05:59] VITALS: BMI 36.8
[2021-11-08 06:30] VITALS: BP 187/124; PULSE 92; RESP 22; TEMP 36.6; O2SAT 96
--- NOTE | 2021-11-08 06:34 | P.PN_ITS ---
Subjective Patient reports: no new complaints Narrative: The patient continues to have liquid stool . Progress Note: A&P (1) SBO (small bowel obstruction) Status: Acute Assessment and plan: Full liquid diet currently ordered. Apparent contrast in right colon noted on last images small bowel follow-through (final radiology read pending) Likely discharge soon with close outpatient follow-up if he continues to tolerate slow advancement of his diet and if final read on small bowel follow- through reveals no concerning abnormality. (2) ETOH abuse Status: Acute (3) Sepsis Status: Acute Exam Vital signs and Labs for Last 24 Hours: Temp Pulse Resp BP Pulse Ox 98.0 F 81 15 145/85 H 97 11/08/21 04:00 11/08/21 04:00 11/08/21 04:00 11/08/21 04:00 11/08/21 04:00 Laboratory Results - last 24 hr 11/07/21 05:33: Sodium 134 L, Potassium 3.9, Chloride 102, Carbon Dioxide 29, Anion Gap 6.9, BUN 4 L D, Creatinine 0.80, Estimated Creat Clear 181, Estimated GFR 103, Est GFR ( Amer) 125, Glucose 114 H, Calcium 8.2 L 11/07/21 06:48: WBC 6.5, RBC 4.31 L, Hgb 13.3 L, Hct 39.8 L, MCV 92.3, MCH 30.9, MCHC 33.5, RDW 13.7, Plt Count 244, MPV 7.3 L, Neut % (Auto) 72.6, Lymph % (Auto) 18.7, [place] % (Auto) 5.7, Eos % (Auto) 2.6, Baso % (Auto) 0.4, Neut # (Auto) 4.7, Lymph # (Auto) 1.2, [place] # (Auto) 0.4, Eos # (Auto) 0.2, Baso # (Auto) 0.0 I & O for Last 24 hours: Intake & Output 11/05/21 11/06/21 11/07/21 11/08/21 11:59 11:59 11:59 11:59 Intake Total 0 / 0 1680 / 1680 720 / 720 Balance 0 / 0 1680 / 1680 720 / 720 Weight 250 lb 249 lb 1.6 oz 249 lb 7 oz 248 lb 9.6 oz Microbiology Reports for the Last 24 Hours: Microbiology 11/05/21 05:35 Blood Blood Culture - Preliminary NO GROWTH AFTER 48 HOURS 11/05/21 05:35 Blood Blood Culture - Preliminary NO GROWTH AFTER 48 HOURS Radiology Reports for the Last 24 Hours: Small bowel follow-through final read is pending. Apparent contrast within the right colon noted on last image. - Constitutional no acute distress - *Routine Respiratory Exam Absent: respiratory distress - *Routine Cardiovascular Exam Absent: tachycardia - *Routine Abdominal Exam Present: soft
[2021-11-08 06:52] LABS: Basophils # 0.1 K/mm3 (0-0.2); Basophils % 0.8 % (0.1-2.0); Eosinophils # 0.2 K/mm3 (0.0-0.4); Eosinophils % 2.9 % (0.1-12.0); Hematocrit 44.3 % (42.0-52.0); Hemoglobin 14.3 g/dL (14.1-18.0); Lymphocytes # 2.1 K/mm3 (0.7-4.5); Lymphocytes % 27.8 % (10-50); Mean Corpuscular HGB Conc 32.3 g/dL (31.8-35.4); Mean Corpuscular Hemoglobin 30.4 pg (27.0-31.2); Mean Corpuscular Volume 94.1 fl (80-94); Mean Platelet Volume 7.2 fl (7.4-10.4); Monocytes # 0.5 K/mm3 (0.1-1.0); Monocytes % 6.1 % (1.7-9.3); Neutrophils # 4.6 K/mm3 (1.8-7.8); Neutrophils % 62.3 % (37.0-80.0); Platelet Count 276 K/mm3 (142-424); Red Blood Count 4.71 M/mm3 (4.60-6.20); Red Cell Distribution Width 13.7 % (11.5-17.5); White Blood Count 7.4 K/mm3 (4.8-10.8)
[2021-11-08 07:06] LABS: Blood Urea Nitrogen 2 mg/dl (9-20); Calcium 9.7 mg/dl (8.4-10.2); Carbon Dioxide 27 mmol/L (22.0-30.0); Chloride 100 mmol/L (98-107); Creatinine Clearance Estimated 206 mL/min (50-200); Estimated Glomerular Filt Rate 120 ml/min (>60); GFR (African American) 146 ML/MIN (>60); Glucose 118 mg/dl (74-100); Sodium 136 mmol/L (136-145)
[2021-11-08 07:30] VITALS: BP 195/119; PULSE 103; RESP 22; O2SAT 96
--- NOTE | 2021-11-08 07:30 | PC.NURSE ---
Patient arrives. Vitals taken. Remains hypertensive. Discusses risks associated with leaving against AMA. Verbalizes understanding. Departs on foot with .
--- NOTE | 2021-11-08 08:13 | PC.NURSE ---
Addendum entered by Monisha Sarmiento RN 11/08/21 08:17: Time of note 0602 Original Note: Patient calls out and states he is going home. pipe joints supervisor called and discussed with patient. Patient is upset stating he has not seen his primary doctors and no one is keeping him informed of his care. Patient allowed to express concerns. Patient states he wants to leave and he has called his . Discussed risks of leaving against medical advice. Patient verbalizes understanding. Patient is hypertensive this morning and discusses risks associated with that. Patient remains adamant that he is leaving. pipe joints supervisor speaks with Dr. Parada and updates him with situation and vitals. states he will see patient at 0800 and work on his chart currently. Patient is sitting in room awaiting his . IV removed.
--- NOTE | 2021-11-08 14:36 | HMH.DCSUM ---
General - General Admission date:: 11/05/21 Discharge date: 11/08/21 HPI HPI: 46 yo male w/ hx HTN, alcohol use disorder, left renal infarction presents for evaluation of abdominal pain. Patient reports since 1600 on 11/04/21 he is experiencing primarily epigastric pain that radiates to his mid-back, and is increasing in severity to 10/10. Pt also reports abdominal distention. States he drinks 10 beers a day and drank about that much today. Since onset of pain he has also had several episodes of nbnb emesis and feels nauseous. States he felt in normal state of health immediately prior to onset of pain. States he has not passed flatus or had BM since onset. Denies recent illness, dysuria, hematuria, numbness, tingling, weakness, cough, rhinorrhea, fever, headache, shortness of breath, chest pain. Emergency department heart rate 119, respiratory rate 26, white blood cell count 19.5, and lactate 3.8 11/05/20 Abd/Pelvis CT: FINDINGS: Aorta: No aortic aneurysm. No aortic dissection. Celiac trunk and mesenteric arteries: No occlusion or significant stenosis. Renal arteries: No occlusion or significant stenosis. Right iliac arteries: No occlusion or significant stenosis. Left iliac arteries: No occlusion or significant stenosis. Liver: The liver is diffusely low in density. Gallbladder and bile ducts: Unremarkable. No calcified stones. No ductal dilation. Pancreas: Unremarkable. No mass. No ductal dilation. Spleen: Unremarkable. No splenomegaly. Adrenal glands: Unremarkable. No mass. Kidneys and ureters: Unremarkable. No solid mass. No hydronephrosis. Stomach and bowel: The stomach is distended with fluid and solids. The colon is decompressed. A few diverticuli of the sigmoid colon are noted. Multiple distended fluid-filled loops of small bowel are seen throughout the abdomen extending to the mid to distal ileum. The transition zone is not identified. Appendix: No evidence of appendicitis. Intraperitoneal space: Small amount of free fluid is seen in the dependent pelvis. Lymph nodes: Unremarkable. No enlarged lymph nodes. Urinary bladder: Unremarkable. No mass. Reproductive: Unremarkable as visualized. Bones/joints: No acute fracture. No dislocation. Soft tissues: Unremarkable. IMPRESSION: 1. Mid to distal small bowel obstruction. No evidence of perforation. The transition zone is not identified but is likely in the mid to distal ileum. 2. Aortic atherosclerosis is present without dissection aneurysm or other acute process. 3. Diffuse hepatic steatosis. 11/05/[address]: FINDINGS: Pulmonary arteries: Normal. No pulmonary emboli. Aorta: Unremarkable. No aortic aneurysm. No aortic dissection. Lungs: Unremarkable. No consolidation. No masses. Pleural spaces: Unremarkable. No pneumothorax. No pleural effusion. Heart: Unremarkable. No cardiomegaly. No pericardial effusion. Lymph nodes: Unremarkable. No enlarged lymph nodes. Bones/joints: Unremarkable. No acute fracture. Soft tissues: Unremarkable. IMPRESSION: No acute findings. No evidence of aortic dissection or other acute aortic syndrome. No evidence of pulmonary embolus. Electronically signed by Rodriguez Adames MD 46-year-old male patient sitting up in bed in the department he denies any abdominal pain or respiratory distress during the night. This morning abdomen is soft, nontender to palpation and patient denies any pain at present. General surgery is following Hospital Course Hospital Course: Laboratory Tests 11/05/21 11/05/21 11/05/21 03:51 03:51 03:51 WBC 18.2 H RBC 5.50 Hgb 16.7 Hct 50.0 MCV 90.8 MCH 30.4 MCHC 33.5 RDW 13.4 Plt Count 336 MPV 7.2 L Neut % (Auto) 75.5 Lymph % (Auto) 18.0 [place] % (Auto) 5.3 Eos % (Auto) 0.4 Baso % (Auto) 0.8 Neut # (Auto) 13.8 H Lymph # (Auto) 3.3 [place] # (Auto) 1.0 Eos # (Auto) 0.1 Baso # (Au
== END 2021-11-08 08:00 | disposition left against medical advice (07) | DRG 872 ==
LOC: ER 05:24 → 2ND 18:17
PROVIDERS: Nurse Practitioner Family; Admitting Provider Family Medicine; Emergency Provider Student in an Organized Health Care Education/Training Program; PCP Family Medicine; Visit Provider Family Medicine
DX: A41.9 Sepsis, unspecified organism (principal); K56.609 Unspecified intestinal obstruction, unspecified as to partial versus complete obstruction; Z20.822 Contact with and (suspected) exposure to COVID-19; R68.0 Hypothermia, not associated with low environmental temperature; F10.10 Alcohol abuse, uncomplicated; I10 Essential (primary) hypertension
CPT/HCPCS: 36415; 71045; 71275; 74019; 74174; 74250; 80048; 80053; 81001; 83605; 83690; 84484; 85007; 85025; 86850; 87040; 93005; 96365; 96367; 96375; 96376; 99285; C9803; J2405; J2543; J3370; Q9967; U0003; U0005